=== PATIENT | male | born 1955 | race African-American/Black ===

== ENCOUNTER → 2017-02-28 | Day surgery (SDC) | payer BC ==
[~2017-02-28] MED LIST: IV RINGERS SOLUTION,LACTATED 1,000 ML IV ONE; LIDOCAINE 2% PF Vial for OR 5 ML VIAL. ONE; PROPOFOL 40 ML IV ONE; SODIUM PHOSPHATES 19/7GM 133 ML ENEMA. ONE
--- NOTE | 2017-03-04 16:37 | PATHOLOGY ---
PATHOLOGY REPORT * * * * * * * * FINAL DIAGNOSIS: Colon biopsy, sigmoid polyp: - Tubulovillous adenoma, predominantly tubular. (JPM:consuelo; 03/04/2017) COMMENT: There is no high-grade dysplasia or evidence of malignancy. REPORT ELECTRONICALLY SIGNED BY: Kiko Oconnor M.D. DATE/TIME: 03/04/2017 16:36 * * * * * * * * GROSS PATHOLOGY: Received in formalin labeled "Jaime Villa, sigmoid polyp," is a 0.9 x 0.7 x 0.5 cm polypoid piece of galeana soft tissue. The margin is inked and the tissue is sectioned perpendicular to the margin and submitted in its entirety in cassette A1. (TSD; 03/03/2017) INITIAL CPT CODE(S): A; 70568 Professional services performed [place] [facility] [address] Technical services performed by [facility] at [address] [place] [address]. SPECIMEN(S) RECEIVED: A.Sigmoid polyp CLINICAL HISTORY: None provided PATIENT: JAIME VILLA /AGE: 203/28/1955 (Age: 61) PATIENT #: [id number] ALT CASE #: SPECIMEN COLLECTION DATE: 02/28/2017 SPECIMEN RECEIVED DATE: 03/03/2017 [facility] - [address] [place] [address] - PHONE: [phone] * * * END OF REPORT * * *
== END | disposition home or self-care (01) ==
LOC: SURG 09:44
PROVIDERS: ATTEND Internal Medicine Gastroenterology
DX: Z12.11 Encounter for screening for malignant neoplasm of colon (principal); D12.5 Benign neoplasm of sigmoid colon; K64.1 Second degree hemorrhoids; K57.30 Diverticulosis of large intestine without perforation or abscess without bleeding
CPT/HCPCS: 45380; 45385; 88305; J2704; J7120; J2001